=== PATIENT | male | born 1980 | race Two or more races ===

== ENCOUNTER 2023-09-27 01:19 | Inpatient (IN) | payer MEDICAID, SELFPAY ==
[2023-09-27] VITALS (9 sets, daily range): BP systolic 112–202; BP diastolic 78–105; PULSE 69–110; RESP 16–20; TEMP 36.1–37.1; O2SAT 96–100; BMI 32.2; BMI 31.6
--- NOTE | 2023-09-27 01:29 | XR_ITS ---
Examination: CT abdomen with intravenous contrast CT pelvis with intravenous contrast 2-D coronal reconstructions 2-D sagittal reconstructions Date and time of exam:September 27, 2023 0258 hrs. Comparison January 20, 2018 Indications: Left lower abdominal pain beginning 10 days ago, history diverticulitis 10 years ago. CTDI: vol (mGy) 20.81 DLP: (mGycm) 949 Technique: Multiple axial sections of the abdomen and pelvis have been obtained. 64 slice high-resolution scanner used. 3 mm axial sections have been obtained, post intravenous injection 60 cc [id number] 2-D sagittal, coronal reconstructions obtained. Low dose protocols were performed. One or more of the following dose reduction techniques were used; automated exposure control, adjustment of the mA and/or KV according to patient size, use of iterative reconstruction technique. Findings: Diffuse fatty infiltration throughout the liver No liver or splenic lesions No gallstones Normal pancreas 8mm left adrenal nodule No renal or ureteral calculi, no hydronephrosis Aorta normal size Normal appendix Acute diverticulitis junction distal descending colon and sigmoid colon without definite abscess Urinary bladder intact No prostatomegaly Impression: Acute diverticulitis distal descending colon and sigmoid colon with no peridiverticular abscess The wall of the colon at these sites is significantly thickened which may relate entirely to inflammatory change but clinical correlation advised and follow-up accordingly
[2023-09-27 01:55] LABS: Lactate (Lactic Acid) 2.1 mMol/L (0.4-2.0)
--- NOTE | 2023-09-27 01:55 | EDNOTE_ITS ---
ED Abdominal Pain RME/HPI General Chief Complaint: Abdominal Pain Stated complaint: ABD PAIN Time seen by provider: 09/27/23 01:29 Arrival date/time: 09/27/23 01:19 43M with history of diverticulitis presents to ED with about 2 weeks of LLQ pain and N/V. Patient was seen in clinic and given and finished 10 day course of Augmentin and 7-day course of metro. Patient is on day 4 of 7 of cipro. Limitations: no limitations Related Data Home Medications ?Medication ?Instructions ?Recorded ?Confirmed No Known Home Medications 08/29/19 08/29/19 Allergies Allergy/AdvReac Type Severity Reaction Status Date / Time No Known Allergies Allergy Verified 09/27/23 01:20 Review of Systems Review of Systems Systems Reviewed: All systems reviewed, normal except as documented Constitutional Constitutional: Reports system reviewed and no additional complaints, except as documented, Denies fever(s) and Denies headache(s) ENT Ears, Nose, Mouth, and Throat: Denies disequilibrium and Denies headache(s) Cardiovascular Cardiovascular: Reports system reviewed and no additional complaints, except as documented, Denies chest pain and Denies dyspnea Respiratory Respiratory: Reports system reviewed and no additional complaints, except as documented, Denies cough and Denies dyspnea Gastrointestinal Gastrointestinal: Reports system reviewed and no additional complaints, except as documented, Reports as per HPI, Reports abdominal pain, Reports nausea and Reports vomiting Neurologic Neurologic: Reports system reviewed and no additional complaints, except as documented, Denies confusion, Denies disequilibrium and Denies headache(s) Psychiatric Psychiatric: Denies confusion Past Medical History Past Medical History NEUROLOGIC: Negative Neurological Disorders or Seizures CARDIAC: Negative Cardiac Disorders or Congestive Heart Failure RESPIRATORY: Positive Asthma; Negative Chronic Obstructive Pulmonary Disease (COPD) GASTROINTESTINAL: Positive Gastrointestinal Disorders and Diverticulitis GENITOURINARY: Positive Genitourinary Disorders and Inguinal Hernia; Negative Renal Disease MUSCULOSKELETAL: Negative Musculoskeletal Disorders ENDOCRINE: Negative Endocrine Disorders, Diabetes Mellitus Type 1 or Diabetes Mellitus Type 2 HEMATOLOGIC: Negative Blood Disorders or Sickle Cell Disease OTHER HISTORY: Positive Chicken Pox; Negative Hospitalization, Autoimmune Disease, Shingles, Falls, Blood Transfusions, Anesthesia Reactions, Chemotherapy, Radiation Therapy or MRSA Family History FAMILY HISTORY: Positive Family Respiratory Disorders (SISTER (ASTHMA)), Family Cardiac Disorders and Family Surgery; Negative Family Psychiatric Problems, Family Gastrointestinal Problems, Family Cancer or Family Anesthesia Reaction Surgical History SURGICAL: Positive Abdominal Surgery Social History SMOKING STATUS: Never smoker ED Exam General Limitations: Present no limitations General appearance: Present alert and in no apparent distress Head Head exam: Present atraumatic Eye Eye exam: Present normal appearance, PERRL and EOMI ENT ENT exam: Present normal exam, normal oropharynx and mucous membranes moist Neck Neck exam: Present normal inspection, full ROM and trachea midline Chest Chest inspection: Present normal inspection and symmetric chest wall rise Respiratory Respiratory exam: Present normal lung sounds bilaterally Cardiovascular Cardiovascular exam: Present regular rate, normal rhythm and normal heart sounds Abdominal Exam Abdominal exam: Present soft and normal bowel sounds Abdominal tenderness: Present LLQ and moderate Extremities Exam Extremities exam: Present normal inspection and full ROM Back Exam Back exam: Present normal inspection and full ROM Neurological Exam Neurological exam: Present alert, oriented X3 and CN II-XII intact Psychiatric Psychiatric exam: Present normal affect and normal mood Skin Skin exam: Present warm, dry, intact and normal color Course Quality Measures none Orders Category Date Time Status Bedside COVID-19 Antigen Test NOW Care 09/27/23 04:[address] Screening NOW Care 09/27/23 01:30 Active Decision to Admit X1 Care 09/27/23 04:56 Active Insert IV NOW Care 09/27/23 01:[address] abdomen pelvis w con Stat Exams 09/27/23 01:29 Taken US testicular Stat Exams 09/27/23 03:35 Taken Blood Culture (Lab) Stat Lab 09/27/23 01:45 Received CBC Stat Lab 09/27/23 01:49 Completed CMP [Comprehensive Metabolic Panel] Stat Lab 09/27/23 01:49 Completed Lactate (Lactic Acid) Stat Lab 09/27/23 01:49 Completed Lactate (Lactic Acid) Stat Lab 09/27/23 04:46 Ordered Lactic Acid, 3 HR Stat Lab 09/27/23 04:51 Ordered Lipase Stat Lab 09/27/23 01:49 Completed Procalcitonin Stat Lab 09/27/23 01:49 Completed UA [Urinalysis] Stat Lab 09/27/23 01:35 Completed Morphine Inj* [Morphine Sulf Inj] Med 09/27/23 01:29 Discontinued 4 mg IVP X1 ONE Morphine Inj* [Morphine Sulf Inj] Med 09/27/23 03:35 Discontinued 4 mg IVP X1 ONE Ondansetron Inj [Zofran Inj] Med 09/27/23 01:29 Discontinued 4 mg IV X1 ONE Piper/Tazo 3.375 gm [Zosyn] Med 09/27/23 04:18 Discontinued 3.375 gm in 50 ml IV X1 Sodium Chloride 0.9% 1000 ml [Ns] 1,000 ml Med 09/27/23 01:29 Discontinued IV 999 mls/hr Vital Signs Vital signs: Vital Signs Temperature 97.8 F 09/27/23 01:24 Pulse Rate 110 H 09/27/23 01:24 Respiratory Rate 18 09/27/23 01:24 Blood Pressure 160/105 H 09/27/23 01:24 Pulse Oximetry (%) 97 09/27/23 01:24 Oxygen Delivery Method Room Air 09/27/23 01:24 O2 at 97% on RA and WNLs Abdominal Pain MDM MDM Narrative MDM Narrative:: 43M with history of diverticulitis presents to ED with about 2 weeks of LLQ pain and N/V. Patient was seen in clinic and given and finished 10 day course of Augmentin and 7-day course of metro. Patient is on day 4 of 7 of cipro. Physical exam reveals LLQ tenderness. Patient is afebrile, alert, but appears to be in pain. CT shows diverticulitis w/o abscess. Labs significant for moderate leukocytosis. Lactate minimally elevated at 2.1. Upon reassessment, patient mentioned some intermittent testicular pain that started yesterday. US was done, which just showed some benign cysts. Normal blood flow. Pain likely referred or residual pain from previous inguinal hernia surgeries. UA clean. Spoke to Dr. Mcintyre who will admit the patient upstairs as he has already failed all outpatient alternatives. Patient given Zosyn, pain/nausea control, and IVF while waiting to be admitted. Patient admitted upstairs. Patient data External records reviewed:: [facility] previous records Clinical information provided by:: patient Social determinants that could affect healthcare access:: none Patient has the following chronic illnesses:: none How is presenting disease/condition affected by chronic disease/condition?: no chronic disease Evaluation data The following diagnostics were reviewed and interpreted by me:: lab results and radiology exam(s) Lab and/or radiology exams considered but not ordered:: ordered Interpretation Summary: above Medications / Prescriptions Medications or Prescriptions considered but not ordered:: ordered Medication administrations:: Medication Administration History Discontinued Medications Sodium Chloride (Ns) 1,000 mls @ 999 mls/hr IV .Q1H1M ONE Stop: 09/27/23 02:29 Last Infusion: 09/27/23 03:27 Dose: Infused Documented By: Admin: 09/27/23 02:01 Dose: 999 mls/hr Documented By: SHAILA Piperacillin/Tazobactam/Dextrose (Zosyn) 3.375 gm in 50 mls @ 100 mls/hr IV X1 ONE Stop: 09/27/23 04:47 Last Infusion: 09/27/23 05:05 Dose: 0 mls/hr Documented By: Admin: 09/27/23 04:38 Dose: 100 mls/hr Documented By: SHAILA Morphine Sulfate (Morphine Sulf Inj 4 Mg/Ml Vial) 4 mg IVP X1 ONE Stop: 09/27/23 01:30 Last Admin: 09/27/23 02:02 Dose: 4 mg Documented By: SHAILA Morphine Sulfate (Morphine Sulf Inj 4 Mg/Ml Vial) 4 mg IVP X1 ONE Stop: 09/27/23 03:36 Last Admin: 09/27/23 03:44 Dose: 4 mg Documented By: SHAILA Ondansetron HCl (Ondansetron Inj 2 Mg/Ml Vial 2 Ml) 4 mg IV X1 ONE; Protocol Stop: 09/27/23 01:30 Last Admin: 09/27/23 02:02 Dose: 4 mg Documented By: SHAILA above Consultations Consultation(s) initiated? (list below): No Diagnosis Differential diagnosis abdominal pain: abdominal pain, acute appendicitis, calculus of kidney, constipation, diverticulitis, gastroenteritis, pancreatitis and small bowel obstruction Most likely diagnosis given after review of the tests above:: diverticulitis Admission Indicated Admission indicated?: indicated Admission Request Was there a request for admission?: Yes Admission Attestation Admission request attestation: Discussed case with [Dr. Mcintyre] from Hospitalist service regarding admission. Discussed patients ED course, exam findings, labs, and radiology results. The Hospitalist [agrees] to accept the patient for admission. Disposition Plan Disposition Plan: Admit Discharge Plan Plan Patient Disposition: Admit Acute Care w/in Hospital Prescriptions/Referrals Prescriptions/Med Rec: No Action No Known Home Medications Referrals: Day Schmidt PA-C [Primary Care Provider] - In 1 week Problem List Clinical Impression: Diverticulitis Patient/Caregiver Discharge Instructions Print Language: Spanish Stand Alone Forms: Patient Portal Info Letter
[2023-09-27 01:56] LABS: Collection Type, Urine Clean Catch; Squamous Epithelial Cell,Urine 0 /hpf (0-5)
[2023-09-27 01:57] LABS: Basophils # (Auto) 0.1 Thou/mm3 (0.0-0.2); Basophils % (Auto) 0 % (0-2.5); Eosinophils % (Auto) 0 % (0-10); Hematocrit 45.2 % (41.0-53.0); Immature Granulocytes % (Auto) 1 % (0-0); Immature Granulocytes Auto 0.08 Thou/mm3 (0.00-0.00); Lymphocytes # (Auto) 2.1 Thou/mm3 (1.0-4.8); Lymphocytes % (Auto) 15 % (10-50); Mean Corpuscular HGB Conc 35.4 g/dl (31.0-37.0); Mean Corpuscular Hemoglobin 30.8 pg (25.0-35.0); Mean Corpuscular Volume 87 fL (80-100); Monocytes % (Auto) 7 % (0-12); Neutrophils # (Auto) 10.6 Thou/mm3 (1.8-7.7); Neutrophils % (Auto) 76 % (37-80); Nucleated Red Blood Cell % 0 /100 WBC (0); Platelet Count 264 Thou/mm3 (140-440); RDW Standard Deviation 37.8 fL (35.1-43.9); White Blood Count 13.9 Thou/mm3 (3.8-10.6)
[2023-09-27 01:59] LABS: Bilirubin,Urine Negative (Negative); Blood,Urine Negative (Negative); Clarity,Urine Clear (Clear/Hazy); Color,Urine Yellow (Lt Yel-Yel); Glucose, Urine Negative (Negative); Ketones,Urine Negative (Negative); Leukocyte Esterase,Urine Negative (Negative); Nitrite,Urine Negative (Negative); PH,Urine 5.5 (5.0-7.0); Protein,Urine Trace (Neg - Trace); RBC,Urine 3 /hpf (0-3); Specific Gravity,Urine 1.028 (1.001-1.035); Urobilinogen,Urine Negative mg/dL (0.0-1.0); WBC,Urine < 1 /hpf (0-5)
[2023-09-27] MEDS: SODIUM CHLORIDE 0.9% 1000 ML 1,000 ML 999 ML IV (02:01)
[2023-09-27] MEDS: MORPHINE SULF INJ 4 MG/ML VIAL IVP ×5 (02:02→20:53)
[2023-09-27 02:22] LABS: Alanine Aminotransferase 83 U/L (10-49); Albumin, Serum 4.6 gm/dL (3.5-5.0); Albumin/Globulin Ratio 1.5 (1.2-2.2); Alkaline Phosphatase 81 U/L (46-116); Anion Gap 7 (7-16); Aspartate Amino Transferase 33 U/L (0-34); BUN/Creatinine Ratio 9 Ratio (12-20); Blood Urea Nitrogen 7 mg/dL (9-23); Calcium 9.5 mg/dL (8.3-10.6); Calcium (Corrected) 9.5 mg/dL (8.5-10.1); Carbon Dioxide 23.9 mMol/L (20.0-31.0); Chloride 105 mMol/L (98-107); Creatinine (Component) 0.8 mg/dL (0.6-1.3); Estimated Creatinine Clearance 114.8 mL/min (>60); Globulin 3.1 gm/dL (2.3-3.5); Glucose 157 mg/dL (74-106); Lipase 44 U/L (12-53); Osmolality,Calculated 272 (275-295); Procalcitonin 0.06 ng/ml (0.0-0.49); Sodium 136 mMol/L (136-145); Total Protein 7.7 gm/dL (5.7-8.2); eGFR > 60 See Note
--- NOTE | 2023-09-27 03:35 | XR_ITS ---
Examination: Testicular sonography complete Technique: Multiple high resolution grayscale sonographic images testes including arterial inflow, venous outflow, Doppler spectral analysis color flow analysis of the testes Exam date and time: September 27, 2023 0414 hrs. Indications: Onset testicular pain beginning 3 days ago. Findings: Right testis 4.0 x 2.1 x 2.8 cm Epididymis 11 mm Right epididymal cysts, 4 mm, 3 mm Arterial flow to the testicle. No testicular mass Left testis 4.0 x 2.1 x 2.9 cm Epididymis 10 mm Arterial flow to the testicle. No testicular mass Minimal hydrocele Impression: No testicular torsion or testicular mass
--- NOTE | 2023-09-27 04:11 | PRELIM_ITS ---
CT scan of the abdomen and pelvis with intravenous contrast (axial sections with sagittal and coronal reformats) September 27, 2023 at 0256 hoursClinical History: Left lower quadrant pain 1 week.Comparis on: Compared with the prior study dated January 20, 2018.Findings:The lung bases are clear. The liver, g allbladder, spleen, pancreas, adrenal glands and kidneys are unremarkable. The appendix is normal, b est seen on image 103. Acute sigmoid diverticulosis with wall thickening and adjacent fat stranding. No free air or fluid collection. The urinary bladder is normal. The abdominal wall is unremarkable. N o acute osseous process. Impression: Acute sigmoid diverticulitis without perforation or abscess.Dis cussion Details: Results verbally communicated to : Dr. Hartman at 04:04 AM 09/27/2023 Report Electronica lly Signed By: DB ACE 09/27/2023 4:11:12 AM [EST]
[2023-09-27] MEDS: PIPER/TAZO 3.375 GM 3.375 GM/50 ML BAG IV ×3 (04:38→21:02)
[2023-09-27 04:51] LABS: Reflex Lactate? Y
--- NOTE | 2023-09-27 06:05 | ESHP_ITS ---
<Statement entered by Elen Mcintyre MD - 09/27/23 20:54> I saw and evaluated the patient independently reviewed his chart including lab work and imaging. I agree with the findings and the plan of care as documented in the resident note. Documentation for date of: 09/27/23 HPI History of Present Illness Chief complaint: abdominal pain History of present illness: Mr Lieberman is a 43 year-old male with history of diverticulosis diagnosed by colonoscopy 10 years ago, hypertension no longer on antihypertensives, and inguinal hernia s/p repair x2, who complains of worsening left lower quadrant abdominal pain that has waxed and waned over the past ~10 days, worsening overnight and becoming severe and intolerable this morning, for which he presented to the ED. He reports associated nausea, fever and chills, but denies any other associated complaint including emesis, diarrhea, or constipation. He reports taking various antibiotics as prescribed by his primary care physician circulation assistant, including amoxicillin which was initially prescribed for an upper respiratory infection on 09/07, metronidazole prescribed for his presenting complaint 09/13, and ciprofloxacin prescribed on 09/23. However he reports ongoing worsening of his pain despite taking the antibiotics as prescribed. Patient notes that he complained of pain radiating down to the suprapubic area and scrotum to ED staff which is absent at the time of my interview, but feels that this pain is referred from his left lower quadrant pain. In the ED, the patient was afebrile, tachycardic to 110, and mildly hypertensive. Initial labs demonstrated leukocytosis (WBC 13.9) with neutrophilic predominance. Chemistry was largely unremarkable except for glucose of 157. LFTs with isolated elevation of ALT to 83. Lactate slightly elevated at 2.1 which cleared on 3-hour interval to 1.3. Urinalysis was unremarkable. CT abdomen and pelvis demonstrated acute diverticulitis of the distal descending colon and sigmoid colon, without abscess. Ultrasound of the testicles was also performed by the emergency department demonstrating only right epididymal cysts 4 mm and 3 mm without torsion or mass. PMHx as above. Patient also notes recent history of hemorrhoids. PSHx as above. FHx: Grandfather and father with coronary artery disease, father had stents at the age of 50. Mother with lung cancer. Mother and father both with diabetes mellitus. Social: Lives in [place] with his and 5 children. He does report significant alcohol use, approximately 12 pack/week. He denies ever using tobacco products, marijuana, or illicit substances. He receives primary care at [facility]: TO[facility]O Ralph. Review of Systems Review of Systems Systems Reviewed: All systems reviewed, normal except as documented Exam Vital Signs Temp Pulse Resp BP Pulse Ox O2 Del Method 97.8 F 101 H 16 132/97 H 100 Room Air 09/27/23 01:24 09/27/23 05:08 09/27/23 05:08 09/27/23 05:08 09/27/23 05:08 09/27/23 05:08 Results: Labs 09/27/23 01:49 09/27/23 01:49 Labs: Short CBC 09/27/23 Range/Units 01:49 WBC 13.9 H (3.8-10.6) Thou/mm3 Hgb 16.0 (13.5-16.0) g/dL Hct 45.2 (41.0-53.0) % Plt Count 264 (140-440) Thou/mm3 BMP 09/27/23 01:49 Sodium 136 Potassium 4.0 Chloride 105 Carbon Dioxide 23.9 BUN 7 L Creatinine 0.8 Glucose 157 H Calcium 9.5 Liver Function 09/27/23 Range/Units 01:49 Total Bilirubin 1.0 (0.3-1.2) mg/dL AST 33 (0-34) U/L ALT 83 H (10-49) U/L Alkaline Phosphatase 81 (46-116) U/L Albumin 4.6 (3.5-5.0) gm/dL Urine 09/27/23 Range/Units 01:35 Urine Color Yellow (Lt Yel-Yel) Urine Clarity Clear (Clear/Hazy) Urine pH 5.5 (5.0-7.0) Ur Specific [place] 1.028 (1.001-1.035) Urine Protein Trace (Neg - Trace) Urine Glucose (UA) Negative (Negative) Quality Measures Quality Measures none Medications Home Medications and Allergies Home Medications ?Medication ?Instructions ?Recorded ?Confirmed ?Type No Known Home Medications 08/29/19 08/29/19 History Allergies Allergy/AdvReac Type Severity Reaction Status Date / Time No Known Allergies Allergy Verified 09/27/23 01:20 Visit Medications Acetaminophen (Acetaminophen 325 Mg Tablet) 650 mg PO Q6H PRN PRN Reason: Fever >101.5 Stop: 10/27/23 05:57 Acetaminophen (Acetaminophen 325 Mg Tablet) 650 mg PO Q6H PRN PRN Reason: PAIN SCALE 1-3 (mild Stop: 10/27/23 05:57 Lactated Ringer's (Lactated Ringers) 1,000 mls @ 125 mls/hr IV .Q8H EVELYNE Stop: 10/27/23 05:59 Piperacillin/Tazobactam/Dextrose (Zosyn) 3.375 gm in 50 mls @ 100 mls/hr IV Q6HR EVELYNE Stop: 10/04/23 06:02 Morphine Sulfate (Morphine Sulf Inj 4 Mg/Ml Vial) 1 mg IVP Q2H PRN PRN Reason: moderate pain (4-6) Morphine Sulfate (Morphine Sulf Inj 4 Mg/Ml Vial) 2 mg IVP Q2H PRN PRN Reason: severe pain (7-10) Ondansetron HCl (Ondansetron Inj 2 Mg/Ml Vial 2 Ml) 4 mg IV Q6H PRN; Protocol PRN Reason: NAUSEA OR VOMITING Stop: 10/27/23 05:57 Discontinued Medications Sodium Chloride (Ns) 1,000 mls @ 999 mls/hr IV .Q1H1M ONE Stop: 09/27/23 02:29 Last Infusion: 09/27/23 03:27 Dose: Infused Piperacillin/Tazobactam/Dextrose (Zosyn) 3.375 gm in 50 mls @ 100 mls/hr IV X1 ONE Stop: 09/27/23 04:47 Last Infusion: 09/27/23 05:44 Dose: Infused Morphine Sulfate (Morphine Sulf Inj 4 Mg/Ml Vial) 4 mg IVP X1 ONE Stop: 09/27/23 01:30 Last Admin: 09/27/23 02:02 Dose: 4 mg Morphine Sulfate (Morphine Sulf Inj 4 Mg/Ml Vial) 4 mg IVP X1 ONE Stop: 09/27/23 03:36 Last Admin: 09/27/23 03:44 Dose: 4 mg Ondansetron HCl (Ondansetron Inj 2 Mg/Ml Vial 2 Ml) 4 mg IV X1 ONE; Protocol Stop: 09/27/23 01:30 Last Admin: 09/27/23 02:02 Dose: 4 mg Assessment & Plan Plan Mr. Lieberman is a 43 YO M hx diverticulitis on outpatient antibiotics who presents with worsening pain of left lower quadrant over the past [address] imaging consistent with acute diverticulitis. Admit for evaluation and management of acute diverticulitis: N.p.o./bowel rest, initiate piperacillin/tazobactam, maintenance LR. #Acute diverticulitis Diverticulosis diagnosed by colonoscopy ~10 years ago, with no interval colonoscopy since. CT abdomen and pelvis demonstrated acute diverticulitis of the distal descending colon and sigmoid colon, without abscess. - NPO/bowel rest - IVF- LR 125cc/h - broad spectrum abx with piperacillin-tazobactam (09/27/2023 - active) - pain management as needed, mild/moderate/severe: acetaminophen/morphine 1mg/morphine 2mg - patient will require gastroenterology outpatient follow-up for colonoscopy >6 weeks post resolution of acute episode #Hepatic steatosis, alcohol associated Incidentally noted diffuse fatty infiltration throughout the liver on CT abd/pelvis. Mild transaminitis. In setting of elevated BMI: 32 kg/m2; approximately 12 beers/week alcohol consumption intermittently. - patient will require outpatient follow-up, consider abstinence. Diet: NPO - bowel rest VTE: SCDs Lines: PIV Dispo: MedSurg for evaluation and management of acute diverticulitis Med Rec: patient denies taking daily home meds Code: Full Patient discussed with attending tailercpa Dr. Francisco Javier Lawrence PGY1
[2023-09-27 06:07] LABS: Lactate (Lactic Acid) 1.3 mMol/L (0.4-2.0)
[2023-09-27] MEDS: RINGERS LACTATED 1000 ML 1,000 ML 125 ML IV ×3 (06:36→20:55)
[2023-09-27] MEDS: MORPHINE SULF INJ 4 MG/ML VIAL 2 MG IVP ×2 (06:58→09:26)
--- NOTE | 2023-09-27 09:37 | XR_ITS ---
Examination: Abdomen AP single view Technique: AP portable supine abdomen, single view Exam date and time: September 27, 2023 0945 hours INDICATIONS: Inpatient with mid abdominal pain. FINDINGS: Moderate air and stool throughout the colon especially right colon Multiple air distended small bowel loops No free air IMPRESSION: Multiple air distended small bowel loops, most consistent with ileus Please see the CT abdomen pelvis report today at 0256 hours
[2023-09-27] MEDS: METOCLOPRAMIDE INJ 5 MG/ML VIAL 2 ML IVP ×2 (11:30→18:51)
--- NOTE | 2023-09-27 11:35 | PD.RESPRO ---
Documentation for date of: 09/27/23 Subjective Subjective Interval history: Patient seen and examined at bedside. Complains of diverticulitis flare, failed outpatient antibiotics. He complains of 05/20 LLQ pain. Exam Vital Signs Temp Pulse Resp BP Pulse Ox O2 Del Method 97.0 F 69 18 142/88 H 97 Room Air 09/27/23 08:34 09/27/23 08:34 09/27/23 08:34 09/27/23 08:34 09/27/23 08:34 09/27/23 08:34 Narrative Exam Constitutional: Mild acute distress HEENT: NCAT. Vision grossly intact. Respiratory: No respiratory distress Cardiac: Non-tachycardic Abdomen: oft, non-distended, diffusely tender mostly in LLQ MSK: No B/L LE edema. Skin: Warm, dry, intact. No obvious lesions. Neuro: Motor and sensation grossly intact. Psychiatric: Appropriate mood and affect. Objective Labs 09/28/23 04:25 09/28/23 04:25 Labs: Laboratory Results - last 24 hr 09/27/23 09/27/23 09/27/23 01:35 01:49 06:01 WBC 13.9 H RBC 5.20 Hgb 16.0 Hct 45.2 MCV 87 MCH 30.8 MCHC 35.4 RDW Std Deviation 37.8 Plt Count 264 Neut % (Auto) 76 Lymph % (Auto) 15 [place] % (Auto) 7 Eos % (Auto) 0 Baso % (Auto) 0 Neut # (Auto) 10.6 H Lymph # (Auto) 2.1 [place] # (Auto) 1.0 H Eos # (Auto) 0.0 Baso # (Auto) 0.1 Immature Gran # (Auto) 0.08 H Absolute Nucleated RBC 0.00 Immature Gran % 1 H Nucleated RBC % 0 Sodium 136 Potassium 4.0 Chloride 105 Carbon Dioxide 23.9 Anion Gap 7 BUN 7 L Creatinine 0.8 Estim Creat Clear Calc 114.8 eGFR > 60 BUN/Creatinine Ratio 9 L Glucose 157 H Calculated Osmolality 272 L Lactic Acid 2.1 H 1.3 Calcium 9.5 Corrected Calcium 9.5 Total Bilirubin 1.0 AST 33 ALT 83 H Alkaline Phosphatase 81 Total Protein 7.7 Albumin 4.6 Globulin 3.1 Albumin/Globulin Ratio 1.5 Lipase 44 Procalcitonin 0.06 Ur Collection Type Clean Catch Urine Color Yellow Urine Clarity Clear Urine pH 5.5 Ur Specific [place] 1.028 Urine Protein Trace Urine Glucose (UA) Negative Urine Ketones Negative Urine Blood Negative Urine Nitrite Negative Urine Bilirubin Negative Urine Urobilinogen (Auto) Negative Ur Leukocyte Esterase Negative Urine RBC 3 Urine WBC < 1 Ur Squamous Epith Cells 0 Urine Bacteria None Quality Measures Quality Measures none Assessment & Plan Assessment Current Active Medications: Generic Name Dose Route Start Last Admin Trade Name Freq PRN Reason Stop Dose Admin Acetaminophen 650 mg 09/27/23 05:58 Acetaminophen 325 Mg Tablet PO 10/27/23 05:57 Q6H PRN Fever >101.5 Acetaminophen 650 mg 09/27/23 05:58 Acetaminophen 325 Mg Tablet PO 10/27/23 05:57 Q6H PRN PAIN SCALE 1-3 (mild Lactated Ringer's 1,000 mls @ 125 mls/hr 09/27/23 06:00 09/27/23 06:36 Lactated Ringers IV 10/27/23 05:59 125 mls/hr .Q8H EVELYNE Administration Piperacillin/Tazobactam/Dextrose 3.375 gm in 50 mls @ 12.5 mls/hr 09/27/23 14:00 Zosyn IV 10/04/23 13:59 Q8HR EVELYNE Labetalol HCl 10 mg 09/27/23 07:43 Labetalol Inj 5 Mg/Ml Vial 20 Ml IVP 10/27/23 07:42 Q6H PRN SBP >180 Metoclopramide HCl 5 mg 09/27/23 12:00 09/27/23 11:30 Metoclopramide Inj 5 Mg/Ml Vial 2 Ml IVP 10/27/23 11:59 5 mg Q6HR EVELYNE Administration Protocol Morphine Sulfate 4 mg 09/27/23 09:37 09/27/23 11:30 Morphine Sulf Inj 4 Mg/Ml Vial IVP 10/02/23 09:36 4 mg Q2H PRN Administration severe pain (7-10) Ondansetron HCl 4 mg 09/27/23 05:58 Ondansetron Inj 2 Mg/Ml Vial 2 Ml IV 10/27/23 05:57 Q6H PRN NAUSEA OR VOMITING Protocol Plan Mr. Lieberman is a 43 YO M with PMH diverticulitis on outpatient antibiotics who presents with worsening pain of left lower quadrant over the past 10 days, admitted for acute diverticulitis. # Sepsis #Acute diverticulitis Diverticulosis diagnosed by colonoscopy ~10 years ago, with no interval colonoscopy since. CT abdomen and pelvis demonstrated acute diverticulitis of the distal descending colon and sigmoid colon, without abscess. Less likely testicular torsion, ruled out on ultrasound. - NPO/bowel rest - IVF- LR 125cc/h - Zosyn (09/27/2023 - active) - Reepat KUB due to worsening abd pain, rule out perforation - Morphine increased 4mg Q2H - patient will require gastroenterology outpatient follow-up for colonoscopy >6 weeks post resolution of acute episode #Hepatic steatosis, alcohol associated Incidentally noted diffuse fatty infiltration throughout the liver on CT abd/pelvis. Mild transaminitis. In setting of elevated BMI: 32 kg/m2; approximately 12 beers/week alcohol consumption intermittently. - patient will require outpatient follow-up, consider abstinence. Health Admit Admit: acute diverticulitis Diet: NPO - bowel rest VTE: SCDs Lines: PIV Dispo: MedSurg for evaluation and management of acute diverticulitis Med Rec: patient denies taking daily home meds Code: Full I have reviewed and discussed the patient's care with my attending, Dr. Amandeep Grey MD PGY-2 Attending Provider Attestation/Addendum I reviewed labs, imaging, EKG, home medications and prior available records. Face to face evaluation was performed by me. I have personally examined the patient and discussed assessment and plan with the IM team. I reviewed the resident note and agree with the plan with exceptions as below. Sepsis secondary to acute diverticulitis: Patient has recurrent episodes. Continue IV Zosyn. Given the recurrence and frequency, will consult GI. Continue pain management and gentle IV hydration in the meantime. Keep the patient n.p.o.
--- NOTE | 2023-09-27 16:12 | PC.NURSE ---
Notified Dr Bansal of Gastroenterology consult ordered. Dr sheffield come in later this evening to see patient.
[2023-09-27] MEDS: ACETAMINOPHEN 325 MG TABLET 650 MG PO (20:01)
--- NOTE | 2023-09-27 20:24 | PD.IMCONS ---
HPI Data of Consult Requesting Physician: Elen Mcintyre MD Primary Care Provider: Day Schmidt PA-C Consult Narrative Reason for consult: Worsening abdominal pain History of present illness: 43 years old male presented emergency room with worsening left lower quad abdominal pain Patient has been having waxing and waning abdominal pain for the last 2 weeks He has been treated by his PCP initially with the metronidazole and Augmentin And now on ciprofloxacin No relief after the pain got worse CT scan of the abdomen pelvis done with contrast showed thickening of the descending colon wall as well as sigmoid colon consistent with acute diverticulitis or other inflammatory processes Patient has been having fever chills and nausea WBC count on admission was 13.9 hemoglobin hematocrit of 16.0 and 45.2 cc:: cc: Elen Mcintyre MD Review of Systems Review of Systems Systems Reviewed: All systems reviewed, normal except as documented Past Medical History Surgical History OTHER SURGICAL HX: Right inguinal hernia repair x 2 Meds Home Medications and Allergies Home Medications ?Medication ?Instructions ?Recorded ?Confirmed ?Type ciprofloxacin HCl 500 mg tablet 500 mg PO 2XD 09/27/23 09/27/23 History Allergies Allergy/AdvReac Type Severity Reaction Status Date / Time No Known Allergies Allergy Verified 09/27/23 01:20 Exam Vital Signs Temp Pulse Resp BP Pulse Ox O2 Del Method 98.4 F 90 18 114/79 96 Room Air 09/27/23 20:00 09/27/23 20:00 09/27/23 20:00 09/27/23 20:00 09/27/23 20:00 09/27/23 20:00 Constitutional Comments: Chronically ill-appearing Routine Respiratory Exam Comments: Normal to auscultation Routine Abdominal Exam Comments: Left lower quadrant tenderness Results Labs 09/27/23 01:49 09/27/23 01:49 Labs: Short CBC 09/27/23 Range/Units 01:49 WBC 13.9 H (3.8-10.6) Thou/mm3 Hgb 16.0 (13.5-16.0) g/dL Hct 45.2 (41.0-53.0) % Plt Count 264 (140-440) Thou/mm3 BMP 09/27/23 01:49 Sodium 136 Potassium 4.0 Chloride 105 Carbon Dioxide 23.9 BUN 7 L Creatinine 0.8 Glucose 157 H Calcium 9.5 Liver Function 02/08/24 Range/Units 01:49 Total Bilirubin 1.0 (0.3-1.2) mg/dL AST 33 (0-34) U/L ALT 83 H (10-49) U/L Alkaline Phosphatase 81 (46-116) U/L Albumin 4.6 (3.5-5.0) gm/dL Urine 09/27/23 Range/Units 01:35 Urine Color Yellow (Lt Yel-Yel) Urine Clarity Clear (Clear/Hazy) Urine pH 5.5 (5.0-7.0) Ur Specific [place] 1.028 (1.001-1.035) Urine Protein Trace (Neg - Trace) Urine Glucose (UA) Negative (Negative) Assessment and Plan Additional Assessment & Plan Additional Plan: # Left lower quadrant abdominal pain with abnormal CT scan and leukocytosis most likely consistent with acute diverticulitis Unlikely inflammatory bowel disease Plan CRP Sed rate ANCA antibody Continue IV Zosyn Will follow the patient closely Hold off any invasive GI workup at this time Thank you very much for the opportunity to participate in care of this patient
[2023-09-28] VITALS: BP 108/61; PULSE 101; RESP 18; TEMP 36.7; O2SAT 96
[2023-09-28] MEDS: METOCLOPRAMIDE INJ 5 MG/ML VIAL 2 ML IVP ×4 (00:03→17:22)
[2023-09-28 04:00] VITALS: BP 115/71; PULSE 98; RESP 18; TEMP 36.8; O2SAT 98
[2023-09-28] MEDS: RINGERS LACTATED 1000 ML 1,000 ML 125 ML IV (04:39)
[2023-09-28] MEDS: PIPER/TAZO 3.375 GM 3.375 GM/50 ML BAG IV ×3 (05:01→22:16)
[2023-09-28 06:00] LABS: Basophils % (Auto) 0 % (0-2.5); Eosinophils # (Auto) 0.1 Thou/mm3 (0.0-0.5); Eosinophils % (Auto) 1 % (0-10); Hematocrit 38.7 % (41.0-53.0); Hemoglobin 13.5 g/dL (13.5-16.0); Immature Granulocytes % (Auto) 1 % (0-0); Immature Granulocytes Auto 0.07 Thou/mm3 (0.00-0.00); Lymphocytes # (Auto) 2.2 Thou/mm3 (1.0-4.8); Lymphocytes % (Auto) 21 % (10-50); Mean Corpuscular HGB Conc 34.9 g/dl (31.0-37.0); Mean Corpuscular Hemoglobin 30.9 pg (25.0-35.0); Mean Corpuscular Volume 89 fL (80-100); Monocytes # (Auto) 1.1 Thou/mm3 (0.0-0.8); Monocytes % (Auto) 11 % (0-12); Neutrophils # (Auto) 7.1 Thou/mm3 (1.8-7.7); Neutrophils % (Auto) 66 % (37-80); Nucleated Red Blood Cell % 0 /100 WBC (0); Platelet Count 212 Thou/mm3 (140-440); RDW Standard Deviation 37.9 fL (35.1-43.9); Red Blood Count 4.37 Miln/mm3 (4.50-5.90); White Blood Count 10.7 Thou/mm3 (3.8-10.6)
[2023-09-28 06:17] LABS: Alanine Aminotransferase 49 U/L (10-49); Albumin, Serum 3.9 gm/dL (3.5-5.0); Albumin/Globulin Ratio 1.6 (1.2-2.2); Alkaline Phosphatase 64 U/L (46-116); Anion Gap 3 (7-16); Aspartate Amino Transferase 19 U/L (0-34); BUN/Creatinine Ratio 9 Ratio (12-20); Bilirubin,Total 1.8 mg/dL (0.3-1.2); Blood Urea Nitrogen 7 mg/dL (9-23); Calcium 9.1 mg/dL (8.3-10.6); Calcium (Corrected) 9.2 mg/dL (8.5-10.1); Carbon Dioxide 26.6 mMol/L (20.0-31.0); Chloride 105 mMol/L (98-107); Creatinine (Component) 0.8 mg/dL (0.6-1.3); Estimated Creatinine Clearance 117.7 mL/min (>60); Globulin 2.5 gm/dL (2.3-3.5); Glucose 91 mg/dL (74-106); Osmolality,Calculated 268 (275-295); Potassium 3.8 mMol/L (3.4-5.1); Sodium 135 mMol/L (136-145); Total Protein 6.4 gm/dL (5.7-8.2); eGFR > 60 See Note
[2023-09-28 08:00] VITALS: BP 131/84; PULSE 98; RESP 18; TEMP 37.3; O2SAT 98
--- NOTE | 2023-09-28 08:15 | PD.RESPRO ---
Documentation for date of: 09/28/23 Subjective Subjective Interval history: Patient seen and examined at bedside. States pain has improved, not in any current pain. Not requiring pain meds since last night. Pain only on deep palpation and with some movement. Endorses some nausea, improved. Wants to try eating. Exam Vital Signs Temp Pulse Resp BP Pulse Ox O2 Del Method 98.2 F 98 18 115/71 98 Room Air 09/28/23 04:00 09/28/23 04:00 09/28/23 04:00 09/28/23 04:00 09/28/23 04:00 09/28/23 04:00 Narrative Exam Constitutional: NAD. Resting comfortably. HEENT: NCAT. Vision grossly intact. Mucous membranes moist. Respiratory: CTAB bilaterally. Cardiac: RRR. N Abdomen: BS+. Soft, non-distended, mild pain deep palpation LLQ. No guarding. MSK: No B/L LE edema. Skin: Warm, dry, intact. No obvious lesions. Neuro: Motor and sensation grossly intact. Psychiatric: Appropriate mood and affect. Objective Labs 09/29/23 05:10 09/29/23 05:10 Labs: Laboratory Results - last 24 hr 09/28/23 04:25 WBC 10.7 H RBC 4.37 L Hgb 13.5 D Hct 38.7 L MCV 89 MCH 30.9 MCHC 34.9 RDW Std Deviation 37.9 Plt Count 212 D Neut % (Auto) 66 Lymph % (Auto) 21 [place] % (Auto) 11 Eos % (Auto) 1 Baso % (Auto) 0 Neut # (Auto) 7.1 Lymph # (Auto) 2.2 [place] # (Auto) 1.1 H Eos # (Auto) 0.1 Baso # (Auto) 0.0 Immature Gran # (Auto) 0.07 H Absolute Nucleated RBC 0.00 Immature Gran % 1 H Nucleated RBC % 0 Sodium 135 L Potassium 3.8 Chloride 105 Carbon Dioxide 26.6 Anion Gap 3 L BUN 7 L Creatinine 0.8 Estim Creat Clear Calc 117.7 eGFR > 60 BUN/Creatinine Ratio 9 L Glucose 91 D Calculated Osmolality 268 L Calcium 9.1 Corrected Calcium 9.2 Total Bilirubin 1.8 H D AST 19 ALT 49 Alkaline Phosphatase 64 D Total Protein 6.4 Albumin 3.9 D Globulin 2.5 Albumin/Globulin Ratio 1.6 Quality Measures Quality Measures none Assessment & Plan Assessment Current Active Medications: Generic Name Dose Route Start Last Admin Trade Name Freq PRN Reason Stop Dose Admin Acetaminophen 650 mg 09/27/23 05:58 Acetaminophen 325 Mg Tablet PO 10/27/23 05:57 Q6H PRN Fever >101.5 Acetaminophen 650 mg 09/27/23 05:58 09/27/23 20:01 Acetaminophen 325 Mg Tablet PO 10/27/23 05:57 650 mg Q6H PRN Administration PAIN SCALE 1-3 (mild Lactated Ringer's 1,000 mls @ 125 mls/hr 09/27/23 06:00 09/28/23 04:39 Lactated Ringers IV 10/27/23 05:59 125 mls/hr .Q8H EVELYNE Administration Piperacillin/Tazobactam/Dextrose 3.375 gm in 50 mls @ 12.5 mls/hr 09/27/23 14:00 09/28/23 05:01 Zosyn IV 10/04/23 13:59 12.5 mls/hr Q8HR EVELYNE Administration Labetalol HCl 10 mg 09/27/23 07:43 Labetalol Inj 5 Mg/Ml Vial 20 Ml IVP 10/27/23 07:42 Q6H PRN SBP >180 Metoclopramide HCl 5 mg 09/27/23 12:00 09/28/23 05:01 Metoclopramide Inj 5 Mg/Ml Vial 2 Ml IVP 10/27/23 11:59 5 mg Q6HR EVELYNE Administration Protocol Morphine Sulfate 4 mg 09/27/23 09:37 09/27/23 20:53 Morphine Sulf Inj 4 Mg/Ml Vial IVP 10/02/23 09:36 4 mg Q2H PRN Administration severe pain (7-10) Ondansetron HCl 4 mg 09/27/23 05:58 Ondansetron Inj 2 Mg/Ml Vial 2 Ml IV 10/27/23 05:57 Q6H PRN NAUSEA OR VOMITING Protocol Plan Mr. Lieberman is a 43 YO M with PMH diverticulitis on outpatient antibiotics who presents with worsening pain of left lower quadrant over the past 10 days, admitted for acute diverticulitis. #Acute diverticulitis, improving Diverticulosis diagnosed by colonoscopy ~10 years ago, with no interval colonoscopy since. CT abdomen and pelvis demonstrated acute diverticulitis of the distal descending colon and sigmoid colon, without abscess. Less likely testicular torsion, ruled out on ultrasound. Repeat KUB due to worsening abd pain, rule out perforation - IVF- LR 125cc/h - Zosyn (09/27/2023 - active) - Pain regimen - Plan to advance diet CLD - GI consulted: ESR, CRP, ANCA; no invasive workup at this time. Outpatient colonoscopy in 6 weeks #Hepatic steatosis, possibly alcohol associated #Elevated bilirubin Incidentally noted diffuse fatty infiltration throughout the liver on CT abd/pelvis. No gallstones. In setting of elevated BMI: 32 kg/m2; approximately 12 beers/week alcohol consumption intermittently. - patient will require outpatient follow-up, consider abstinence. Health Admit Admit: acute diverticulitis Diet: NPO, plan to advance CLD VTE: SCDs Lines: PIV Dispo: MedSurg for evaluation and management of acute diverticulitis Med Rec: patient denies taking daily home meds Code: Full I have reviewed and discussed the patient's care with my attending, Dr. Amandeep Grey MD PGY-2 Attending Provider Attestation/Addendum I reviewed labs, imaging, EKG, home medications and prior available records. Face to face evaluation was performed by me. I have personally examined the patient and discussed assessment and plan with the IM team. I reviewed the resident note and agree with the plan with exceptions as below. Sepsis secondary to acute diverticulitis: Patient has recurrent episodes. Continue IV Zosyn. Given the recurrence and frequency, consulted GI: Recommended to continue medical management with plan for colonoscopy as outpatient. Holding any invasive therapy. Continue pain management. Started the patient on clear liquid diet.
--- NOTE | 2023-09-28 11:28 | PC.SS ---
Krunal Lieberman is a 43-year-old male admitted for Diverticulitis . SS made contact with patient at bedside to complete initial and discuss discharge disposition. Role and reason for the contact was explained to Patient. Demographic information was verified. Pt identified his , Ella Lieberman as his surrogate decision maker [phone]. He is independent with all ADLs. Patient does not utilize any source of DME, or home O2. [facility] At time of discharge patient will return home, will provide transportation. Discharge Plan: Home Next of Kin, , Jacklyn Lieberman [phone] PCP: Day Schmidt
--- NOTE | 2023-09-28 11:33 | PC.SS ---
Krunal Lieberman is a 43-year-old male admitted for Diverticulitis . SS made contact with patient at bedside to complete initial and discuss discharge disposition. Role and reason for the contact was explained to Patient. Demographic information was verified. Pt identified his , Ella Lieberman as his surrogate decision maker [phone]. He is independent with all ADLs. Patient does not utilize any source of DME, or home O2. [facility] At time of discharge patient will return home, will provide transportation. Discharge Plan: Home Next of Kin, , Jacklyn Lieberman [phone] PCP: Day Schmidt
[2023-09-28 12:00] VITALS: BP 130/79; PULSE 88; RESP 18; TEMP 36.7; O2SAT 96
[2023-09-28 16:00] VITALS: BP 137/81; PULSE 87; RESP 18; TEMP 36.7; O2SAT 95
--- NOTE | 2023-09-28 16:53 | PD.IMPROG ---
Documentation for date of: 09/28/23 Subjective Subjective Interval history: Clinically improving White count is coming down from 13.9-10.7 Abdominal pain is less Examination shows less left-sided abdominal tenderness Case discussed with the internal medicine resident Started patient on clear liquid diet Exam Vital Signs Temp Pulse Resp BP Pulse Ox O2 Del Method 98.1 F 87 18 137/81 H 95 Room Air 09/28/23 16:00 09/28/23 16:00 09/28/23 16:00 09/28/23 16:00 09/28/23 16:00 09/28/23 16:00 Constitutional Comments: Alert oriented Routine Respiratory Exam Comments: Normal to auscultation Routine Abdominal Exam Comments: Left-sided tenderness Objective Labs 09/28/23 04:25 09/28/23 04:25 Labs: Laboratory Results - last 24 hr 09/28/23 04:25 WBC 10.7 H RBC 4.37 L Hgb 13.5 D Hct 38.7 L MCV 89 MCH 30.9 MCHC 34.9 RDW Std Deviation 37.9 Plt Count 212 D Neut % (Auto) 66 Lymph % (Auto) 21 [place] % (Auto) 11 Eos % (Auto) 1 Baso % (Auto) 0 Neut # (Auto) 7.1 Lymph # (Auto) 2.2 [place] # (Auto) 1.1 H Eos # (Auto) 0.1 Baso # (Auto) 0.0 Immature Gran # (Auto) 0.07 H Absolute Nucleated RBC 0.00 Immature Gran % 1 H Nucleated RBC % 0 Sodium 135 L Potassium 3.8 Chloride 105 Carbon Dioxide 26.6 Anion Gap 3 L BUN 7 L Creatinine 0.8 Estim Creat Clear Calc 117.7 eGFR > 60 BUN/Creatinine Ratio 9 L Glucose 91 D Calculated Osmolality 268 L Calcium 9.1 Corrected Calcium 9.2 Total Bilirubin 1.8 H D AST 19 ALT 49 Alkaline Phosphatase 64 D Total Protein 6.4 Albumin 3.9 D Globulin 2.5 Albumin/Globulin Ratio 1.6 Impressions Impression: # Acute sigmoid and descending colon diverticulitis improving Start clear liquid diet # Leukocytosis improving Assessment & Plan A&P Narrative # Left lower quadrant abdominal pain with abnormal CT scan and leukocytosis most likely consistent with acute diverticulitis Unlikely inflammatory bowel disease Plan CRP Sed rate ANCA antibody Continue IV Zosyn Will follow the patient closely Hold off any invasive GI workup at this time Thank you very much for the opportunity to participate in care of this patient Time Spent With Patient Time: Total time spent is greater than 50% in coordination of care (as documented) at patient's floor/unit and/or counseling patient:
[2023-09-28 20:00] VITALS: BP 135/82; PULSE 94; RESP 16; TEMP 37.8; O2SAT 98
[2023-09-29] VITALS: BP 118/80; PULSE 80; RESP 18; TEMP 36.2; O2SAT 98
[2023-09-29] MEDS: METOCLOPRAMIDE INJ 5 MG/ML VIAL 2 ML IVP ×4 (00:32→17:43)
[2023-09-29 04:00] VITALS: BP 131/88; PULSE 86; RESP 18; TEMP 36.7; O2SAT 97
[2023-09-29] MEDS: PIPER/TAZO 3.375 GM 3.375 GM/50 ML BAG IV ×3 (05:36→22:27)
[2023-09-29 05:58] LABS: Basophils % (Auto) 0 % (0-2.5); Eosinophils # (Auto) 0.2 Thou/mm3 (0.0-0.5); Eosinophils % (Auto) 2 % (0-10); Hematocrit 39.5 % (41.0-53.0); Hemoglobin 14.1 g/dL (13.5-16.0); Immature Granulocytes % (Auto) 1 % (0-0); Immature Granulocytes Auto 0.06 Thou/mm3 (0.00-0.00); Lymphocytes # (Auto) 1.9 Thou/mm3 (1.0-4.8); Lymphocytes % (Auto) 25 % (10-50); Mean Corpuscular HGB Conc 35.7 g/dl (31.0-37.0); Mean Corpuscular Hemoglobin 31.1 pg (25.0-35.0); Mean Corpuscular Volume 87 fL (80-100); Monocytes # (Auto) 0.7 Thou/mm3 (0.0-0.8); Monocytes % (Auto) 10 % (0-12); Neutrophils # (Auto) 4.6 Thou/mm3 (1.8-7.7); Neutrophils % (Auto) 61 % (37-80); Nucleated Red Blood Cell % 0 /100 WBC (0); Platelet Count 224 Thou/mm3 (140-440); RDW Standard Deviation 37.9 fL (35.1-43.9); Red Blood Count 4.53 Miln/mm3 (4.50-5.90); White Blood Count 7.5 Thou/mm3 (3.8-10.6)
[2023-09-29 06:33] LABS: Alanine Aminotransferase 40 U/L (10-49); Albumin/Globulin Ratio 1.4 (1.2-2.2); Alkaline Phosphatase 62 U/L (46-116); Anion Gap 2 (7-16); Aspartate Amino Transferase 20 U/L (0-34); BUN/Creatinine Ratio 10 Ratio (12-20); Bilirubin,Total 1.3 mg/dL (0.3-1.2); Blood Urea Nitrogen 8 mg/dL (9-23); Calcium 9.3 mg/dL (8.3-10.6); Calcium (Corrected) 9.3 mg/dL (8.5-10.1); Carbon Dioxide 26.6 mMol/L (20.0-31.0); Chloride 108 mMol/L (98-107); Creatinine (Component) 0.8 mg/dL (0.6-1.3); Estimated Creatinine Clearance 117.7 mL/min (>60); Globulin 2.8 gm/dL (2.3-3.5); Glucose 101 mg/dL (74-106); Osmolality,Calculated 272 (275-295); Potassium 3.9 mMol/L (3.4-5.1); Sodium 137 mMol/L (136-145); Total Protein 6.8 gm/dL (5.7-8.2); eGFR > 60 See Note
[2023-09-29 08:00] VITALS: BP 117/77; PULSE 84; RESP 16; TEMP 36.9; O2SAT 98
[2023-09-29 12:00] VITALS: BP 122/90; PULSE 86; RESP 16; TEMP 36.4; O2SAT 99
--- NOTE | 2023-09-29 13:31 | ESPR_ITS ---
Documentation for date of: 09/29/23 Subjective Subjective Interval history: Patient was seen at bedside. He is sitting up in the chair and states that he feels much better than before but continues to have left lower quadrant pain. He states that he has not had a bowel movement in days but is passing flatus. He is not ready to advance diet so we will continue with full liquid diet. If patient continues to do well then tonight we will transition him over to a soft diet. Exam Vital Signs Temp Pulse Resp BP Pulse Ox O2 Del Method 97.6 F 86 16 122/90 H 99 Room Air 09/29/23 12:00 09/29/23 12:00 09/29/23 12:00 09/29/23 12:00 09/29/23 12:00 09/29/23 12:00 Narrative Exam Constitutional: NAD. Resting comfortably. HEENT: NCAT. Vision grossly intact. Mucous membranes moist. Respiratory: CTAB bilaterally. Cardiac: RRR. N Abdomen: BS+. Soft, non-distended, mild pain deep palpation LLQ. No guarding. MSK: No B/L LE edema. Skin: Warm, dry, intact. No obvious lesions. Neuro: Motor and sensation grossly intact. Psychiatric: Appropriate mood and affect. Objective Labs 09/30/23 04:35 09/30/23 04:35 Labs: Laboratory Results - last 24 hr 09/29/23 05:10 WBC 7.5 RBC 4.53 Hgb 14.1 Hct 39.5 L MCV 87 MCH 31.1 MCHC 35.7 RDW Std Deviation 37.9 Plt Count 224 Neut % (Auto) 61 Lymph % (Auto) 25 [place] % (Auto) 10 Eos % (Auto) 2 Baso % (Auto) 0 Neut # (Auto) 4.6 Lymph # (Auto) 1.9 [place] # (Auto) 0.7 Eos # (Auto) 0.2 Baso # (Auto) 0.0 Immature Gran # (Auto) 0.06 H Absolute Nucleated RBC 0.00 Immature Gran % 1 H Nucleated RBC % 0 Sodium 137 Potassium 3.9 Chloride 108 H Carbon Dioxide 26.6 Anion Gap 2 L BUN 8 L Creatinine 0.8 Estim Creat Clear Calc 117.7 eGFR > 60 BUN/Creatinine Ratio 10 L Glucose 101 Calculated Osmolality 272 L Calcium 9.3 Corrected Calcium 9.3 Total Bilirubin 1.3 H D AST 20 ALT 40 Alkaline Phosphatase 62 Total Protein 6.8 Albumin 4.0 Globulin 2.8 Albumin/Globulin Ratio 1.4 Quality Measures Quality Measures none Assessment & Plan Assessment Current Active Medications: Generic Name Dose Route Start Last Admin Trade Name Freq PRN Reason Stop Dose Admin Acetaminophen 650 mg 09/27/23 05:58 Acetaminophen 325 Mg Tablet PO 10/27/23 05:57 Q6H PRN Fever >101.5 Acetaminophen 650 mg 09/27/23 05:58 09/27/23 20:01 Acetaminophen 325 Mg Tablet PO 10/27/23 05:57 650 mg Q6H PRN Administration PAIN SCALE 1-3 (mild Piperacillin/Tazobactam/Dextrose 3.375 gm in 50 mls @ 12.5 mls/hr 09/27/23 14:00 09/29/23 05:36 Zosyn IV 10/04/23 13:59 12.5 mls/hr Q8HR EVELYNE Administration Labetalol HCl 10 mg 09/27/23 07:43 Labetalol Inj 5 Mg/Ml Vial 20 Ml IVP 10/27/23 07:42 Q6H PRN SBP >180 Metoclopramide HCl 5 mg 09/27/23 12:00 09/29/23 11:40 Metoclopramide Inj 5 Mg/Ml Vial 2 Ml IVP 10/27/23 11:59 5 mg Q6HR EVELYNE Administration Protocol Morphine Sulfate 4 mg 09/27/23 09:37 09/27/23 20:53 Morphine Sulf Inj 4 Mg/Ml Vial IVP 10/02/23 09:36 4 mg Q2H PRN Administration severe pain (7-10) Ondansetron HCl 4 mg 09/27/23 05:58 Ondansetron Inj 2 Mg/Ml Vial 2 Ml IV 10/27/23 05:57 Q6H PRN NAUSEA OR VOMITING Protocol Plan Mr. Lieberman is a 43 YO M with PMH diverticulitis on outpatient antibiotics who presents with worsening pain of left lower quadrant over the past 10 days, admitted for acute diverticulitis. #Acute diverticulitis, improving Diverticulosis diagnosed by colonoscopy ~10 years ago, with no interval colonoscopy since. CT abdomen and pelvis demonstrated acute diverticulitis of the distal descending colon and sigmoid colon, without abscess. Less likely testicular torsion, ruled out on ultrasound. Repeat KUB due to worsening abd pain, rule out perforation - Zosyn (09/27/2023 - active) - Pain regimen - Plan to advance to full liquid diet - GI consulted: ESR, CRP, ANCA; no invasive workup at this time. Outpatient colonoscopy in 6 weeks #Hepatic steatosis, possibly alcohol associated #Elevated bilirubin Incidentally noted diffuse fatty infiltration throughout the liver on CT abd/pelvis. No gallstones. In setting of elevated BMI: 32 kg/m2; approximately 12 beers/week alcohol consumption intermittently. - patient will require outpatient follow-up, consider abstinence. Health Admit Admit: acute diverticulitis Diet: Full liquid diet VTE: SCDs Lines: PIV Dispo: MedSurg for evaluation and management of acute diverticulitis Med Rec: patient denies taking daily home meds Code: Full I have reviewed and discussed the patient's care with my attending, Dr. Amandeep Zhong M.D. PGY-2 Attending Provider Attestation/Addendum I reviewed labs, imaging, EKG, home medications and prior available records. Face to face evaluation was performed by me. I have personally examined the patient and discussed assessment and plan with the IM team. I reviewed the resident note and agree with the plan with exceptions as below. Sepsis secondary to acute diverticulitis: Patient has recurrent episodes. Continue IV Zosyn. Given the recurrence and frequency, consulted GI: Recommended to continue medical management with plan for colonoscopy as outpatient. Holding any invasive therapy. Continue pain management. Started the patient on clear liquid diet, will advance as tolerated.
[2023-09-29 16:00] VITALS: BP 112/68; PULSE 77; RESP 16; TEMP 36.9; O2SAT 96
[2023-09-29 20:00] VITALS: BP 112/77; PULSE 77; RESP 16; TEMP -13.1; TEMP 8.5; O2SAT 96
--- NOTE | 2023-09-29 20:03 | PD.IMPROG ---
Documentation for date of: 09/29/23 Subjective Subjective Interval history: Gradually improving Still has left lower quadrant pain Tolerating full liquid diet Exam Vital Signs Temp Pulse Resp BP Pulse Ox O2 Del Method 98.5 F 77 16 112/68 96 Room Air 09/29/23 16:00 09/29/23 16:00 09/29/23 16:00 09/29/23 16:00 09/29/23 16:00 09/29/23 16:00 Constitutional Comments: Chronically ill Routine Respiratory Exam Comments: Normal to auscultation Objective Labs 09/29/23 05:10 09/29/23 05:10 Labs: Laboratory Results - last 24 hr 09/29/23 05:10 WBC 7.5 RBC 4.53 Hgb 14.1 Hct 39.5 L MCV 87 MCH 31.1 MCHC 35.7 RDW Std Deviation 37.9 Plt Count 224 Neut % (Auto) 61 Lymph % (Auto) 25 [place] % (Auto) 10 Eos % (Auto) 2 Baso % (Auto) 0 Neut # (Auto) 4.6 Lymph # (Auto) 1.9 [place] # (Auto) 0.7 Eos # (Auto) 0.2 Baso # (Auto) 0.0 Immature Gran # (Auto) 0.06 H Absolute Nucleated RBC 0.00 Immature Gran % 1 H Nucleated RBC % 0 Sodium 137 Potassium 3.9 Chloride 108 H Carbon Dioxide 26.6 Anion Gap 2 L BUN 8 L Creatinine 0.8 Estim Creat Clear Calc 117.7 eGFR > 60 BUN/Creatinine Ratio 10 L Glucose 101 Calculated Osmolality 272 L Calcium 9.3 Corrected Calcium 9.3 Total Bilirubin 1.3 H D AST 20 ALT 40 Alkaline Phosphatase 62 Total Protein 6.8 Albumin 4.0 Globulin 2.8 Albumin/Globulin Ratio 1.4 Impressions Impression: # Acute left-sided diverticulitis Continue current management Advance to low residue diet in the morning Assessment & Plan A&P Narrative # Left lower quadrant abdominal pain with abnormal CT scan and leukocytosis most likely consistent with acute diverticulitis Unlikely inflammatory bowel disease Plan CRP Sed rate ANCA antibody Continue IV Zosyn Will follow the patient closely Hold off any invasive GI workup at this time Thank you very much for the opportunity to participate in care of this patient Time Spent With Patient Time: Total time spent is greater than 50% in coordination of care (as documented) at patient's floor/unit and/or counseling patient:
[2023-09-30] VITALS: BP 113/70; PULSE 76; RESP 18; TEMP 36.4; O2SAT 98
[2023-09-30 04:00] VITALS: BP 109/69; PULSE 82; RESP 18; TEMP 36; O2SAT 98
[2023-09-30] MEDS: PIPER/TAZO 3.375 GM 3.375 GM/50 ML BAG IV ×2 (05:06→15:20)
[2023-09-30] MEDS: METOCLOPRAMIDE INJ 5 MG/ML VIAL 2 ML IVP ×4 (05:07→17:23)
[2023-09-30 06:05] LABS: Basophils % (Auto) 0 % (0-2.5); Eosinophils # (Auto) 0.2 Thou/mm3 (0.0-0.5); Eosinophils % (Auto) 2 % (0-10); Hematocrit 39.5 % (41.0-53.0); Immature Granulocytes % (Auto) 1 % (0-0); Immature Granulocytes Auto 0.06 Thou/mm3 (0.00-0.00); Lymphocytes # (Auto) 2.1 Thou/mm3 (1.0-4.8); Lymphocytes % (Auto) 33 % (10-50); Mean Corpuscular HGB Conc 35.4 g/dl (31.0-37.0); Mean Corpuscular Volume 88 fL (80-100); Monocytes # (Auto) 0.6 Thou/mm3 (0.0-0.8); Monocytes % (Auto) 10 % (0-12); Neutrophils # (Auto) 3.4 Thou/mm3 (1.8-7.7); Neutrophils % (Auto) 54 % (37-80); Nucleated Red Blood Cell % 0 /100 WBC (0); Platelet Count 274 Thou/mm3 (140-440); RDW Standard Deviation 37.9 fL (35.1-43.9); Red Blood Count 4.51 Miln/mm3 (4.50-5.90); White Blood Count 6.4 Thou/mm3 (3.8-10.6)
[2023-09-30 06:40] LABS: Alanine Aminotransferase 44 U/L (10-49); Albumin, Serum 4.1 gm/dL (3.5-5.0); Albumin/Globulin Ratio 1.5 (1.2-2.2); Alkaline Phosphatase 63 U/L (46-116); Anion Gap 6 (7-16); Aspartate Amino Transferase 25 U/L (0-34); BUN/Creatinine Ratio 10 Ratio (12-20); Bilirubin,Total 1.2 mg/dL (0.3-1.2); Blood Urea Nitrogen 8 mg/dL (9-23); Calcium 9.5 mg/dL (8.3-10.6); Calcium (Corrected) 9.5 mg/dL (8.5-10.1); Carbon Dioxide 26.1 mMol/L (20.0-31.0); Chloride 106 mMol/L (98-107); Creatinine (Component) 0.8 mg/dL (0.6-1.3); Estimated Creatinine Clearance 117.7 mL/min (>60); Globulin 2.7 gm/dL (2.3-3.5); Glucose 94 mg/dL (74-106); Osmolality,Calculated 273 (275-295); Potassium 3.8 mMol/L (3.4-5.1); Sodium 138 mMol/L (136-145); Total Protein 6.8 gm/dL (5.7-8.2); eGFR > 60 See Note
[2023-09-30 08:00] VITALS: BP 124/84; PULSE 90; RESP 18; TEMP 36.2; O2SAT 98
--- NOTE | 2023-09-30 08:57 | PD.RESPRO ---
Documentation for date of: 09/30/23 Exam Vital Signs Temp Pulse Resp BP Pulse Ox O2 Del Method 96.8 F 82 18 109/69 98 Room Air 09/30/23 04:00 09/30/23 04:00 09/30/23 04:00 09/30/23 04:00 09/30/23 04:00 09/30/23 04:00 Objective Labs 09/30/23 04:35 09/30/23 04:35 Labs: Laboratory Results - last 24 hr 09/30/23 04:35 WBC 6.4 RBC 4.51 Hgb 14.0 Hct 39.5 L MCV 88 MCH 31.0 MCHC 35.4 RDW Std Deviation 37.9 Plt Count 274 D Neut % (Auto) 54 Lymph % (Auto) 33 [place] % (Auto) 10 Eos % (Auto) 2 Baso % (Auto) 0 Neut # (Auto) 3.4 Lymph # (Auto) 2.1 [place] # (Auto) 0.6 Eos # (Auto) 0.2 Baso # (Auto) 0.0 Immature Gran # (Auto) 0.06 H Absolute Nucleated RBC 0.00 Immature Gran % 1 H Nucleated RBC % 0 Sodium 138 Potassium 3.8 Chloride 106 Carbon Dioxide 26.1 Anion Gap 6 L BUN 8 L Creatinine 0.8 Estim Creat Clear Calc 117.7 eGFR > 60 BUN/Creatinine Ratio 10 L Glucose 94 Calculated Osmolality 273 L Calcium 9.5 Corrected Calcium 9.5 Total Bilirubin 1.2 AST 25 ALT 44 Alkaline Phosphatase 63 Total Protein 6.8 Albumin 4.1 Globulin 2.7 Albumin/Globulin Ratio 1.5 Quality Measures Quality Measures none Assessment & Plan Assessment Current Active Medications: Generic Name Dose Route Start Last Admin Trade Name Freq PRN Reason Stop Dose Admin Acetaminophen 650 mg 09/27/23 05:58 Acetaminophen 325 Mg Tablet PO 10/27/23 05:57 Q6H PRN Fever >101.5 Acetaminophen 650 mg 09/27/23 05:58 09/27/23 20:01 Acetaminophen 325 Mg Tablet PO 10/27/23 05:57 650 mg Q6H PRN Administration PAIN SCALE 1-3 (mild Piperacillin/Tazobactam/Dextrose 3.375 gm in 50 mls @ 12.5 mls/hr 09/27/23 14:00 09/30/23 05:06 Zosyn IV 10/04/23 13:59 12.5 mls/hr Q8HR EVELYNE Administration Labetalol HCl 10 mg 09/27/23 07:43 Labetalol Inj 5 Mg/Ml Vial 20 Ml IVP 10/27/23 07:42 Q6H PRN SBP >180 Metoclopramide HCl 5 mg 09/27/23 12:00 09/30/23 05:07 Metoclopramide Inj 5 Mg/Ml Vial 2 Ml IVP 10/27/23 11:59 5 mg Q6HR EVELYNE Administration Protocol Morphine Sulfate 4 mg 09/27/23 09:37 09/27/23 20:53 Morphine Sulf Inj 4 Mg/Ml Vial IVP 10/02/23 09:36 4 mg Q2H PRN Administration severe pain (7-10) Ondansetron HCl 4 mg 09/27/23 05:58 Ondansetron Inj 2 Mg/Ml Vial 2 Ml IV 10/27/23 05:57 Q6H PRN NAUSEA OR VOMITING Protocol Plan Mr. Lieberman is a 43 YO M with PMH diverticulitis on outpatient antibiotics who presents with worsening pain of left lower quadrant over the past 10 days, admitted for acute diverticulitis. #Acute diverticulitis, improving Diverticulosis diagnosed by colonoscopy ~10 years ago, with no interval colonoscopy since. CT abdomen and pelvis demonstrated acute diverticulitis of the distal descending colon and sigmoid colon, without abscess. Less likely testicular torsion, ruled out on ultrasound. Repeat KUB due to worsening abd pain, rule out perforation - Zosyn (09/27/2023 - active) - Pain regimen - GI consulted: Outpatient colonoscopy in 6 weeks. Advance to low residue diet #Hepatic steatosis, possibly alcohol associated #Elevated bilirubin Incidentally noted diffuse fatty infiltration throughout the liver on CT abd/pelvis. No gallstones. In setting of elevated BMI: 32 kg/m2; approximately 12 beers/week alcohol consumption intermittently. - patient will require outpatient follow-up, consider abstinence. Health Admit Admit: acute diverticulitis Diet: Low residue diet VTE: SCDs Lines: PIV Dispo: MedSurg for evaluation and management of acute diverticulitis Med Rec: patient denies taking daily home meds Code: Full
[2023-09-30 12:00] VITALS: BP 130/79; PULSE 86; RESP 18; TEMP 36.2; O2SAT 99
--- NOTE | 2023-09-30 12:24 | ESDS_ITS ---
Planned Discharge Date 09/30/23 DS: Providers Provider Date of admission: 09/27/23 05:59 Primary care physician: Day Schmidt PA-C Admitting Provider: Elen Mcintyre MD Attending Provider on Admission: Kasi Bernstein MD Consults: 09/27/23 13:37 Consult to Gastroenterology Routine Comment: recurrent diverticulitis Consulting Provider: Meaghan Bansal Attending Provider on DC: Devora Grey MD Discharging Provider: Devora Grey MD DS: Diagnosis Problem List Completed Was Problem List Reviewed/Reconciled?: Yes Hospital Course Hospital Course Hospital course: Mr. Lieberman is a 43 YO M with PMH diverticulitis on outpatient antibiotics who presents with worsening pain of left lower quadrant over the past 10 days, admitted for acute diverticulitis. Mr Lieberman is a 43 year-old male with history of diverticulosis diagnosed by colonoscopy 10 years ago, hypertension no longer on antihypertensives, and inguinal hernia s/p repair x2, who complains of worsening left lower quadrant abdominal pain that has waxed and waned over the past ~10 days, worsening overnight and becoming severe and intolerable this morning, for which he presented to the ED. He reports associated nausea, fever and chills, but denies any other associated complaint including emesis, diarrhea, or constipation. He reports taking various antibiotics as prescribed by his primary care physician assistant coach, including amoxicillin which was initially prescribed for an upper respiratory infection on 09/07, metronidazole prescribed for his presenting complaint 09/13, and ciprofloxacin prescribed on 09/23. However he reports ongoing worsening of his pain despite taking the antibiotics as prescribed. Patient notes that he complained of pain radiating down to the suprapubic area and scro nisha to ED staff which is absent at the time of my interview, but feels that this pain is referred from his left lower quadrant pain. CT abdomen and pelvis demonstrated acute diverticulitis of the distal descending colon and sigmoid colon, without abscess. Ultrasound of the testicles was also performed by the emergency department demonstrating only right epididymal cysts 4 mm and 3 mm without torsion or mass. Patient admitted for acute diverticulitis. Repeat KUB due to worsening abd pain, rule out perforation. Patient treated with IV Zosyn, bowel rest, and IV fluids. GI Dr. Bansal was consulted. Patient has significant overall improvement. Diet was advanced. Patient to follow up with GI Dr. Bansal outpatient in 6 weeks. Patient to be discharged to with the following recommendations: - Take ciprofloxacin and Flagyl both for 11 more days to complete a 14-day course of antibiotics. - Patient will need to follow-up with GI Dr. Bansal outpatient in 6 weeks for colonoscopy - Continue all home medications - Follow up with your primary care physician within 1 week of discharge. If you do not have a primary care physician, please follow up with the [facility] ([phone]) #Acute diverticulitis, improving #Hepatic steatosis, possibly alcohol associated #Elevated bilirubin, resolved I have reviewed and discussed the patient's care with my attending, Dr. Amandeep Grey MD PGY-2 Status at Discharge Functional status at discharge: independent ambulation Time Spent with Patient Time attestation: Total time spent providing and/or coordinating discharge services: 35 min Time spent: Greater than 30 minutes Exam Vital Signs Temp Pulse Resp BP Pulse Ox O2 Del Method 97.1 F 90 18 124/84 98 Room Air 09/30/23 08:00 09/30/23 08:00 09/30/23 08:00 09/30/23 08:00 09/30/23 08:00 09/30/23 08:00 Narrative Exam Constitutional: NAD. AAOx3 HEENT: NCAT. Vision grossly intact. Mucous membranes moist. Respiratory: CTAB bilaterally. No rales, ronchi, wheezing, crackles appreciated. Cardiac: RRR. Normal S1, S2. No MRG appreciated. Abdomen: Soft, non-distended, mild tenderness LLQ on deep palpation, no guarding or rebound MSK: No B/L LE edema. Skin: Warm, dry, intact. No obvious lesions. Neuro: Motor and sensation grossly intact. Psychiatric: Appropriate mood and affect. Discharge Plan Plan Patient Disposition: HOME (Self Care) Prescriptions/Referrals Prescriptions/Med Rec: New metronidazole 500 mg tablet 500 mg PO Q8H 11 Days Qty: 33 0RF ciprofloxacin HCl [Cipro] 500 mg tablet 500 mg PO BID 11 Days Qty: 22 0RF Discontinued ciprofloxacin HCl 500 mg tablet 500 mg PO 2XD Patient Comments: TAKE 1 TABLET BY MOUTH TWICE A DAY FOR 7 DAYS Referrals: Day Schmidt PA-C [Primary Care Provider] - Meaghan Bansal MD [Physician] - Patient/Caregiver Discharge Instructions Other Discharge Activity Instructions:: Take ciprofloxcain and metronidazole (antibiotics) for 11 days to complete 14 day course of antibiotics for acute diverticulitis. Follow up with GI Dr. Bansal, you will need a colonoscopy in 6 weeks. Patient is excused from work for 10 days, until 10/12/2023. Education Materials: Diverticulosis Diverticulitis, Discharge Instructions for ..., ED Diverticulitis Print Language: [place] Activity Restrictions/Additional Instructions: Take ciprofloxcain and metronidazole (antibiotics) for 11 days to complete 14 day course of antibiotics for acute diverticulitis. Follow up with GI Dr. Bansal, you will need a colonoscopy in 6 weeks. Patient is excused from work for 10 days, until 10/12/2023. Stand Alone Forms: Patient Portal Info Letter, Work/Release Restrictions Discharge Order Discharge Orders: Discharge (Routine); Ordered 09/30/23 Ordered By: Devora Grey Quality Discharge Quality Measures VTE prophylaxis Attestestation MD Attestation I reviewed labs, imaging, EKG, home medications and prior available records. Face to face evaluation was performed by me. I have personally examined the patient and discussed assessment and plan with the IM team. I reviewed the resident note and agree with the plan with exceptions as below. Sepsis secondary to acute diverticulitis: Symptoms improved. He tolerated his advanced diet. Patient has recurrent episodes. Will discharge on oral antibiotics. High-fiber diet. Given the recurrence and frequency, consulted GI: Recommended to continue medical management with plan for colonoscopy as outpatient. Holding any invasive therapy. Continue pain management. Time spent is 40 minutes. More than 50% of the time was spent on patient education and coordination of care.
--- NOTE | 2023-09-30 14:26 | ESPR_ITS ---
Documentation for date of: 09/30/23 Subjective Subjective Interval history: Patient evaluated Still has abdominal pain but improving White count is down to 6.4 hemoglobin hematocrit 14.0 39.5 Exam Vital Signs Temp Pulse Resp BP Pulse Ox O2 Del Method 97.1 F 90 18 124/84 98 Room Air 09/30/23 08:00 09/30/23 08:00 09/30/23 08:00 09/30/23 08:00 09/30/23 08:00 09/30/23 08:00 Constitutional Comments: Alert oriented Routine Respiratory Exam Comments: Normal to auscultation Routine Abdominal Exam Comments: Left lower quadrant tenderness no rebound Objective Labs 09/30/23 04:35 09/30/23 04:35 Labs: Laboratory Results - last 24 hr 09/30/23 04:35 WBC 6.4 RBC 4.51 Hgb 14.0 Hct 39.5 L MCV 88 MCH 31.0 MCHC 35.4 RDW Std Deviation 37.9 Plt Count 274 D Neut % (Auto) 54 Lymph % (Auto) 33 [place] % (Auto) 10 Eos % (Auto) 2 Baso % (Auto) 0 Neut # (Auto) 3.4 Lymph # (Auto) 2.1 [place] # (Auto) 0.6 Eos # (Auto) 0.2 Baso # (Auto) 0.0 Immature Gran # (Auto) 0.06 H Absolute Nucleated RBC 0.00 Immature Gran % 1 H Nucleated RBC % 0 Sodium 138 Potassium 3.8 Chloride 106 Carbon Dioxide 26.1 Anion Gap 6 L BUN 8 L Creatinine 0.8 Estim Creat Clear Calc 117.7 eGFR > 60 BUN/Creatinine Ratio 10 L Glucose 94 Calculated Osmolality 273 L Calcium 9.5 Corrected Calcium 9.5 Total Bilirubin 1.2 AST 25 ALT 44 Alkaline Phosphatase 63 Total Protein 6.8 Albumin 4.1 Globulin 2.7 Albumin/Globulin Ratio 1.5 Impressions Impression: # Pain left lower quadrant acute diverticulitis resolving Continue current management Assessment & Plan A&P Narrative # Left lower quadrant abdominal pain with abnormal CT scan and leukocytosis most likely consistent with acute diverticulitis Unlikely inflammatory bowel disease Plan CRP Sed rate ANCA antibody Continue IV Zosyn Will follow the patient closely Hold off any invasive GI workup at this time Thank you very much for the opportunity to participate in care of this patient Time Spent With Patient Time: Total time spent is greater than 50% in coordination of care (as documented) at patient's floor/unit and/or counseling patient:
[2023-09-30 16:00] VITALS: BP 110/74; PULSE 79; RESP 17; TEMP 36.6; O2SAT 96
--- NOTE | 2023-09-30 18:24 | PC.NURSE ---
Pt wanted to complete IV zozsyn prior to discharge. Endorsed.
== END 2023-09-30 19:50 | disposition home or self-care (01) | DRG 720 ==
LOC: SERX 05:02 → SERHOLD 06:28 → S3EX 08:33 → S3SX 09-29 19:57
PROVIDERS: Physician Assistant; Student in an Organized Health Care Education/Training Program; Admitting Provider Student in an Organized Health Care Education/Training Program; Emergency Provider Emergency Medicine; PCP Physician Assistant; Visit Provider Student in an Organized Health Care Education/Training Program
DX: A41.9 Sepsis, unspecified organism (principal); K57.32 Diverticulitis of large intestine without perforation or abscess without bleeding; K70.0 Alcoholic fatty liver; I10 Essential (primary) hypertension; F10.988 Alcohol use, unspecified with other alcohol-induced disorder; N50.3 Cyst of epididymis; N50.819 Testicular pain, unspecified
CPT/HCPCS: 36415; 74018; 74177; 76870; 80053; 81001; 83605; 83690; 84145; 85025; 87040; 87811; 96374; 96375; 99285; A4649; J2270; J2405; J2543; J2765; J7030; J7120; Q9967; A9270

== ENCOUNTER → 2024-12-18 | Outpatient (CLI) | payer MEDICAID, SELFPAY ==
--- NOTE | 2024-12-18 11:30 | XR_ITS ---
Examination: CT abdomen with intravenous contrast CT pelvis with intravenous contrast 2-D coronal reconstructions 2-D sagittal reconstructions Date and time of exam:December 18, 2024 1156 hours Comparison September 27, 2023 INDICATIONS: Left lower abdominal pain beginning one year ago, history acute diverticulitis distal descending colon and sigmoid colon on CT study September 2023. CTDI: vol (mGy) 7.7 DLP: (mGycm) 150 Technique: Multiple axial sections of the abdomen and pelvis have been obtained. 64 slice high-resolution scanner used. 3 mm axial sections have been obtained, post intravenous injection 60 cc [id number] 2-D sagittal, coronal reconstructions obtained. Low dose protocols were performed. One or more of the following dose reduction techniques were used; automated exposure control, adjustment of the mA and/or KV according to patient size, use of iterative reconstruction technique. Findings: Fatty infiltration throughout the liver, no focal liver lesions No gallstones No pancreatic or adrenal mass No renal or ureteral calculi, no hydronephrosis 20 mm fat-containing umbilical hernia Normal appendix Colonic diverticulosis, no definite acute diverticulitis Intact urinary bladder Tiny fat-containing inguinal hernias IMPRESSION: Colonic diverticulosis, no definite acute diverticulitis currently
== END | disposition home or self-care (01) ==
DX: K57.30 Diverticulosis of large intestine without perforation or abscess without bleeding (principal)
CPT/HCPCS: 74177; A4649; Q9967